=== PATIENT | female | born 1955 | race Caucasian/White ===

== ENCOUNTER 2022-04-15 12:43 | Outpatient (RCR) | payer MEDICARE, SELFPAY ==
[2022-04-15 14:26] VITALS: BP 140/60; PULSE 60; RESP 20; TEMP 36.6; O2SAT 100
[2022-04-15] MEDS: diphenhydrAMINE HCl CAP 25 MG CAPSULE PO (14:30)
[2022-04-15] MEDS: FAMOTIDINE 20 MG TABLET PO (14:30)
[2022-04-15] MEDS: ACETAMINOPHEN 325 MG TABLET 650 MG PO (14:30)
[2022-04-15] MEDS: BEBTELOVIMAB 175 MG/2 ML VIAL IV PUSH (14:50)
[2022-04-15 15:30] VITALS: BP 147/68; PULSE 61; O2SAT 99
[2022-04-15] MEDS: HEPARIN SODIUM LOCK FLUSH 500 UNITS/5 ML SYRINGE IV PUSH (15:33)
== END 2022-04-15 16:00 ==
LOC: AMCINF 12:43
PROVIDERS: PCP Family Medicine; Referring Provider Physician Assistant; Visit Provider Internal Medicine Hematology & Oncology
DX: U07.1 COVID-19 (principal); D84.9 Immunodeficiency, unspecified
CPT/HCPCS: A9270; M0222; Q0222

== ENCOUNTER → 2023-10-21 12:10 | Outpatient (CLI) | payer MEDICARE, SELFPAY ==
--- NOTE | ~2023-10-21 | MM_ITS ---
EXAMINATION: MM screening [facility] BI w harish HISTORY: Screening mammogram TECHNIQUE: Craniocaudal and mediolateral oblique 3-D tomosynthesis images were obtained and synthetic 2-D images were generated. CAD analysis was submitted and interpreted. COMPARISON: 11/20/2017, 02/20/2016, 12/10/2013 BREAST PARENCHYMAL COMPOSITION: The breasts are heterogeneously dense, which may obscure small masses . FINDINGS: RIGHT BREAST: An asymmetry is present in the middle third of the slightly upper breast 5.5 cm from th e nipple on the mediolateral oblique view. LEFT BREAST: No suspicious mass, calcification, or architectural distortion are identified to suggest malignancy. There has been no suspicious interval change. IMPRESSION: 1. Right breast asymmetry. 2. Additional mammographic views and possible breast ultrasound are recommended. BI-RADS Category 0: Incomplete: Needs additional imaging evaluation. Reviewed, dictated and finalized at location A. ER MAKER IMPRESSION: 1. Right breast asymmetry. 2. Additional mammographic views and possible breast ultrasound are recommended . BI-RADS Category 0: Incomplete: Needs additional imaging evaluation.
== END ==
PROVIDERS: Visit Provider Physician Assistant
DX: Z12.31 Encounter for screening mammogram for malignant neoplasm of breast (principal); R92.8 Other abnormal and inconclusive findings on diagnostic imaging of breast
CPT/HCPCS: 77063; 77067

== ENCOUNTER 2023-11-03 15:36 | Observation (INO) | payer MEDICARE, MEDICAID, SELFPAY ==
[2023-11-03] VITALS (9 sets, daily range): BP systolic 124–154; BP diastolic 53–63; PULSE 70–90; RESP 13–20; TEMP 36.1–36.7; O2SAT 96–100; BMI 29.1
--- NOTE | ~2023-11-03 | XR_ITS ---
EXAMINATION: XR chest 2V DATE: 11/03/2023 16:23 INDICATION: Chest pain TECHNIQUE: AP and lateral views of the chest are obtained. COMPARISON: 02/09/2014 FINDINGS: There is mild atelectasis of the lung bases. No pleural effusion or pneumothorax. The cardi omediastinal silhouette is normal. There is moderate thoracic spondylosis. A right internal jugular P ort-A-Cath ends with its tip in the midsuperior vena cava. IMPRESSION: 1. Mild atelectasis of the lung bases. Reviewed, dictated and finalized at location L. EN PRINTING SUPERVISOR
--- NOTE | 2023-11-03 15:44 | ECG_ITS ---
Measurements Intervals [place] Rate: 86 P: 36 CO: 137 QRS: 50 QRSD: 88 T: 55 QT: 384 QTc: 461 Interpretive Statements SINUS RHYTHM POSSIBLE LEFT ATRIAL ENLARGEMENT [-0.1mV P-WAVE IN V1/V2] NO PREVIOUS ECG AVAILABLE FOR COMPARISON Electronically Signed On 11-04-2023 15:01:01 NURSE ANESTHETIST by Jesus Reyna M.D.
[2023-11-03 16:16] LABS: Basophils Absolute Auto 0.1 K/mm3 (0.0-0.1); Basophils Percent Auto 0.9 % (0.2-1.2); Eosinophils Absolute Auto 0.1 K/mm3 (0-0.3); Eosinophils Percent Auto 0.4 % (0-4.4); Hematocrit 32.6 % (37.0-47.0); Hemoglobin 10.2 g/dL (12.0-15.0); Immature Granulocyte Absolute 0.06 K/mm3 (0.00-0.031); Immature Granulocyte Percent A 0.5 % (0-0.5); Lymphocytes Absolute Auto 1.07 K/mm3 (0.9-3.2); Lymphocytes Percent Auto 8.4 % (18.3-44.2); Mean Corpuscular HGB Conc 31.3 g/dl (32-36); Mean Corpuscular Hemoglobin 29.4 pg (26-34); Mean Corpuscular Volume 93.9 fl (80-100); Mean Platelet Volume 9.8 fl (7.4-10.4); Monocytes Absolute Auto 0.4 K/mm3 (0.1-0.6); Monocytes Percent Auto 2.9 % (2.6-8.5); Neutrophils Absolute Auto 11.1 K/mm3 (1.3-6.7); Neutrophils Percent Auto 86.9 % (45.5-73.1); Nucleated Red Blood Cells Absolute Auto 0.2 K/mm3 (0.0-0.012); Nucleated Red Blood Cells Perc 1.3 % (0.0-0.2); Platelet Count Result 402 k/mm3 (150-375); Red Blood Count 3.47 M/mm3 (4.2-5.4); Red Cell Distribution Width 19.4 % (11.5-14.5); White Blood Count 12.8 K/mm3 (4.5-10.0)
[2023-11-03 16:24] LABS: Alanine Aminotransferase 26 U/L (6-35); Albumin Level 3.6 g/dL (3.5-5.1); Alkaline Phosphatase 113 U/L (38-126); Anion Gap 5 mmol/L (8-16); Aspartate Amino Transferase 33 U/L (14-36); Bilirubin,Total 0.3 mg/dL (0.2-1.3); Blood Urea Nitrogen 24 mg/dL (7-17); Calcium 8.6 mg/dL (8.4-10.2); Carbon Dioxide 21 mmol/L (22-30); Chloride 110 mmol/L (98-107); Estimated Glomerular Filt Rate > 60; Glucose 225 mg/dL (65-110); Lipase 35 U/L (23-300); Potassium 4.5 mmol/L (3.4-5.0); Sodium 136 mmol/L (137-145)
[2023-11-03 16:26] LABS: INR 1.6; Partial Thromboplastin Time 30.8 SECONDS (22.3-36.8); Prothrombin Time 20.1 Seconds (11.1-14.7)
[2023-11-03 16:38] LABS: Troponin I 0.051 ng/mL (0.000-0.034)
--- NOTE | 2023-11-03 17:48 | ED.ARRPALP ---
HPI - Arrhythmia/Palpitations General Chief Complaint: Chest Pain Stated Complaint: SVT Time Seen by Provider: 11/03/23 16:38 History of Present Illness HPI narrative: Patient is a 68-year-old female with a history of pancreatic cancer, diabetes presenting with palpitations. Patient states that she developed palpitations and chest pain earlier today. EMS was called and she was in SVT. She received 6 mg of adenosine and her heart rate normalized. States that she has felt fine since that time. No further chest pain, shortness of breath, lightheadedness. No recent leg swelling, fevers, cough, nausea vomiting, diarrhea. No complaints currently. Related Data Home Medications Medication Instructions Recorded Confirmed Cinnamon 1 cap PO DAILY 06/15/20 11/03/23 cyclobenzaprine 10 mg tablet 10 mg PO Q8H PRN muscle spasms 06/15/20 11/03/23 cetirizine 10 mg tablet (Zyrtec) 10 mg PO DAILY allergies 02/06/22 11/03/23 lzyplvmp-say-dvstb ac 400 1 tablet PO DAILY 02/06/22 11/03/23 mcg-calcium carb 500 mg-vit K1 20 mcg tablet (Women's 50 Plus Multivitamin) opium tincture 10 mg/mL (morphine) 0.5 ml PO Q6H 02/06/22 11/03/23 oral acetaminophen 650 mg tablet 650 mg PO Q6H PRN Pain (Scale 11/03/23 11/04/23 Score 1-3) aluminum-magnesium hydroxide 180 20 ml PO Q4H PRN mucositis 11/03/23 11/04/23 mg-160 mg/5 mL oral suspension aspirin 81 mg tablet 81 mg PO DAILY 11/03/23 11/03/23 benzonatate 100 mg capsule 100 mg PO TID PRN Cough 11/03/23 11/03/23 betamethasone, augmented 0.05 % 1 applic topical BID PRN Itching 11/03/23 11/03/23 topical ointment diphenoxylate-atropine 2.5 1 tablet PO QID PRN Diarrhea 11/03/23 11/03/23 mg-0.025 mg tablet glucagon 1 mg/0.2 mL subcutaneous 1 mg subcut PRN PRN severe low 11/03/23 11/03/23 auto-injector (Gvoke HypoPen blood glucose 2-Pack) lidocaine-prilocaine 2.5 %-2.5 % 1 applic topical ONCE PRN port 11/03/23 11/04/23 topical cream access ondansetron 8 mg disintegrating 8 mg PO Q8H PRN nausea or vomiting 11/03/23 11/03/23 tablet prochlorperazine maleate 10 mg 10 mg PO Q6H PRN nausea or vomiting 11/03/23 11/04/23 tablet (Compazine) sitagliptin phosphate 25 mg tablet 25 mg PO DAILY 11/03/23 11/03/23 (Januvia) triamcinolone acetonide 0.1 % 1 applic topical BID PRN eczema, 11/03/23 11/04/23 topical cream itching vitamin B complex (B 1 tablet PO DAILY 11/03/23 11/04/23 Complex-Vitamin B12 tablet) ergocalciferol (vitamin D2) 1,250 1,250 mcg PO WEEKLY 11/04/23 11/03/23 mcg (50,000 unit) capsule escitalopram oxalate 20 mg tablet 20 mg PO HS 11/04/23 11/03/23 insulin aspart U-100 100 unit/mL 7 unit subcut AC 11/04/23 11/03/23 (3 mL) subcutaneous pen insulin glargine 100 unit/mL (3 37 unit subcut HS 11/04/23 11/03/23 mL) subcutaneous pen (Lantus Solostar U-100 Insulin) levothyroxine 125 mcg tablet 125 mcg PO DAILY 11/04/23 11/03/23 oxybutynin chloride 5 mg tablet 5 mg PO BID 11/04/23 11/03/23 Allergies Allergy/AdvReac Type Severity Reaction Status Date / Time metformin Allergy Unknown unknown Verified 11/03/23 15:43 terbinafine Allergy Unknown unknown Verified 11/03/23 15:43 Molds and Smuts Allergy Intermediate unknown Uncoded 11/03/23 15:43 Review of Systems Review of Systems: All systems reviewed & are unremarkable except as noted in HPI and below PMFSH Past Medical History Medical History (Updated 11/08/23 @ 13:18 by Evie Pate MD) Adenocarcinoma of pancreas Depression Diabetes HLD (hyperlipidemia) Hypertension Hypothyroidism PVD (peripheral vascular disease) Thyroid disease Surgical History Surgical History H/O sinus surgery H/O: hysterectomy Family History Family History Other Cerebrovascular accident Depression Diabetes mellitus Family history of coronary artery disease Family history of lung cancer Family histor
[2023-11-03] MEDS: SODIUM CHLORIDE 0.9% IV 1,000 ML 999 ML IV CONT (17:50)
--- NOTE | 2023-11-03 18:28 | ECG_ITS ---
Measurements Intervals [place] Rate: 78 P: 49 MN: 147 QRS: 56 QRSD: 82 T: 56 QT: 401 QTc: 459 Interpretive Statements SINUS RHYTHM WITH OCCASIONAL SUPRAVENTRICULAR PREMATURE COMPLEXES COMPARED TO ECG 11/03/2023 15:48:15 NO SIGNIFICANT CHANGES Electronically Signed On 11-04-2023 15:04:45 GEOSPATIAL INFORMATION SCIENTIST by Jesus Reyna M.D.
[2023-11-03 19:06] LABS: Troponin I 0.147 ng/mL (0.000-0.034)
[2023-11-03] MEDS: ASPIRIN 81 MG CHEWABLE TABLET 324 MG PO (21:08)
[2023-11-03 22:02] LABS: Glucose Point of Care 184 mg/dl (65-105)
[2023-11-03 22:50] LABS: Troponin I 0.198 ng/mL (0.000-0.034)
--- NOTE | 2023-11-03 23:03 | PM.IMHP ---
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 Patient called EMS after developing sudden onset of palpitations and chest pain that started around noon. Patient was standing at her kitchen window looking out.Denies any prodromal symptoms. No strenuous activities prior to episode, spent morning picking up. Trialed rest which did not resolve her symptoms. Patient then checked her vitals which showed her HR 198 and BP 235/190. Lowest observed HR by patient was 155. Patient spoke with her Oncology office around 2 pm, they advised she call EMS. EMS arrived around 2:30 pm. Chest pain and palpitations lasted for 2.5 hours. Chest pain was described as pressure/squeeze and non-radiating. Upon EMS arrival, quick mixer operator showed patient to be in SVT. She was administered 6 mg of adenosine with subsequent normalization of heart rate. Chest pain and palpitations resolved with medication administration. Denies any further episodes of chest pain, chest tightness, SOB, lightheadedness, diaphoresis, nausea, or vomiting. No recent illnesses. No known sick contacts. Is receiving treatment for pancreatic cancer, last chemo treatment on 10/26 - goes to [facility]. Denies any triggers - increase in caffeine, reduced sleep, or increased stress. Cardiac RF include - HTN, HLD, and currently receiving chemo. No previous cardiac procedures, does have stent near or in femoral arteries - unclear exact location. No previous history of dysrhythmia. No previous history of anemia, was told she may develop mild anemia secondary to chemo. Initial VS at presentation: 98 F, HR 90, RR 20, 135/61, 100% on RA. ED workup showed mild leukocytosis with WBC of 12.8, mild anemia with a hemoglobin of 10.2 (decrease compared to previous in 2018, 12.7), creatinine 0.9, glucose 225, no other significant electrolyte derangements, and troponin 0.147. CXR showed mild atelectasis of the lung bases. EKG showed sinus rhythm with possible left atrial enlargement. Second EKG showed sinus rhythm with occasional supraventricular premature complexes. Review of Systems Review of Systems: All systems reviewed & are unremarkable except as noted in HPI and below PMFSH Past Medical History Medical History (Updated 11/03/23 @ 23:14 by Concha Waters APRN) Adenocarcinoma of pancreas Depression Diabetes HLD (hyperlipidemia) Hypertension Hypothyroidism PVD (peripheral vascular disease) Thyroid disease Surgical History Surgical History H/O sinus surgery H/O: hysterectomy Family History Family History Other Cerebrovascular accident Depression Diabetes mellitus Family history of coronary artery disease Family history of lung cancer Family history of malignant neoplasm of bone Malignant neoplasm of prostate Social History Social History Smoking packs per day: 1 Smoking cigarettes per day: 20.0 Years smoked: 20 Smoking pack-years: 20.00 Smoking status: Former smoker Tobacco type: cigarettes Second hand tobacco smoke exposure: No Smoking end date: 09/28/12 Alcohol intake: never Substance use: never Substance use type: does not use Do You Feel Safe in your Home?: Yes Lack of Transportation: No Lack of Food: Never True Current Housing: I Have Housing Concerned About Future Housing: No Difficulty Paying Gas/Electric Bills: No Difficulty Paying for Meds: No Currently Unemployed: No Education: Trade/Vocational Certificate Difficulty w/ Childcare or Family Care: No Spiritual care concerns: No Agr
[2023-11-03 23:39] LABS: Glucose Point of Care 161 mg/dl (65-105)
[2023-11-04] VITALS (19 sets, daily range): BP systolic 127–144; BP diastolic 38–55; PULSE 67–78; RESP 16–18; TEMP 35.9–36.5; O2SAT 98–100
--- NOTE | 2023-11-04 00:06 | ADMGEN ---
This patient, Shanti Rogers, was admitted to IMU Room 209-01 at 2310. Patient/family oriented to hospital policies and general routines including ID bracelet, bed and alarms, visiting hours, pain management, procedures, bathroom and other care routines, personal items, smoking policy, room service/diet, and visiting hours. Information on how to activate the Rapid Response Team has been discussed. Patient/Family are encouraged to report perceived risks to care and to ask questions if they do not understand what they are told or what they should do.
[2023-11-04] MEDS: LEVOTHYROXINE SODIUM 125 MCG TABLET PO (06:32)
[2023-11-04 07:18] LABS: Glucose Point of Care 197 mg/dl (65-105)
[2023-11-04] MEDS: ALPRAZolam (*CRX) 0.25 MG TABLET PO ×3 (10:04→17:24)
[2023-11-04] MEDS: INSULIN ASPART (*BKC) 100 UNITS/ML 7 UNITS SUB-Q ×3 (10:04→17:28)
[2023-11-04] MEDS: THERAPEUTIC MULTIVITAMINS/MINERALS TAB (*BKC) 1 TABLET PO (10:05)
[2023-11-04] MEDS: VITAMIN B COMPLEX CAPSULE 1 CAP PO (10:05)
[2023-11-04] MEDS: ATORVASTATIN 20 MG TABLET PO (10:05)
[2023-11-04] MEDS: amLODIPine BESYLATE 5 MG TABLET PO (10:05)
[2023-11-04] MEDS: oxyBUTYnin CHLORIDE 5 MG TABLET PO ×2 (10:05→17:24)
[2023-11-04] MEDS: ASPIRIN 81 MG ENTERIC TABLET PO (10:06)
[2023-11-04] MEDS: METOPROLOL TARTRATE 6.25 MG TABLET PO ×2 (10:09→20:54)
[2023-11-04] MEDS: INSULIN ASPART (*BKC) 100 UNITS/ML SUB-Q ×2 (11:51→20:57)
[2023-11-04 12:21] LABS: Glucose Point of Care 220 mg/dl (65-105)
[2023-11-04 12:37] LABS: Basophils Absolute Auto 0.1 K/mm3 (0.0-0.1); Basophils Percent Auto 0.7 % (0.2-1.2); Eosinophils Absolute Auto 0.2 K/mm3 (0-0.3); Eosinophils Percent Auto 1.4 % (0-4.4); Hematocrit 30.1 % (37.0-47.0); Hemoglobin 9.8 g/dL (12.0-15.0); Immature Granulocyte Absolute 0.08 K/mm3 (0.00-0.031); Immature Granulocyte Percent A 0.6 % (0-0.5); Lymphocytes Absolute Auto 2.03 K/mm3 (0.9-3.2); Lymphocytes Percent Auto 15.8 % (18.3-44.2); Mean Corpuscular HGB Conc 32.6 g/dl (32-36); Mean Corpuscular Hemoglobin 30.4 pg (26-34); Mean Corpuscular Volume 93.5 fl (80-100); Mean Platelet Volume 10.2 fl (7.4-10.4); Monocytes Absolute Auto 0.6 K/mm3 (0.1-0.6); Monocytes Percent Auto 4.5 % (2.6-8.5); Neutrophils Absolute Auto 9.9 K/mm3 (1.3-6.7); Nucleated Red Blood Cells Absolute Auto 0.2 K/mm3 (0.0-0.012); Nucleated Red Blood Cells Perc 1.6 % (0.0-0.2); Platelet Count Result 368 k/mm3 (150-375); Red Blood Count 3.22 M/mm3 (4.2-5.4); Red Cell Distribution Width 19.4 % (11.5-14.5); White Blood Count 12.8 K/mm3 (4.5-10.0)
[2023-11-04 12:43] LABS: Alanine Aminotransferase 22 U/L (6-35); Albumin Level 3.6 g/dL (3.5-5.1); Alkaline Phosphatase 108 U/L (38-126); Anion Gap 6 mmol/L (8-16); Aspartate Amino Transferase 25 U/L (14-36); Bilirubin,Total 0.4 mg/dL (0.2-1.3); Blood Urea Nitrogen 19 mg/dL (7-17); Calcium 8.7 mg/dL (8.4-10.2); Carbon Dioxide 21 mmol/L (22-30); Chloride 112 mmol/L (98-107); Estimated CRCL calculation 49 ml/min; Estimated Glomerular Filt Rate 55; Glucose 221 mg/dL (65-110); Magnesium 2.2 mg/dL (1.6-2.3); Potassium 4.3 mmol/L (3.4-5.0); Sodium 139 mmol/L (137-145)
[2023-11-04 12:53] LABS: Iron 87 ug/dL (37-170)
[2023-11-04 13:00] LABS: NT Pro B Type Natriuretic Pept 878 pg/mL (19.9-100)
[2023-11-04 13:07] LABS: Percent Iron Saturation 25 % (20-50)
[2023-11-04 13:13] LABS: Troponin I 0.077 ng/mL (0.000-0.034)
[2023-11-04] MEDS: CENTRAL LINE FLUSH 10 ML IV PUSH ×2 (13:27→20:57)
[2023-11-04 13:51] LABS: Folic Acid > 20.0 ng/mL (2.76->20)
--- NOTE | 2023-11-04 14:38 | PM.IMPN ---
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 H&P as follows Patient called EMS after developing sudden onset of palpitations and chest pain that started around noon. Patient was standing at her kitchen window looking out.Denies any prodromal symptoms.? No strenuous activities prior to episode, spent morning picking up. Trialed rest which did not resolve her symptoms. Patient then checked her vitals which showed her HR 198 and BP 235/190. Lowest observed HR by patient was 155. Patient spoke with her Oncology office around 2 pm, they advised she call EMS. EMS arrived around 2:30 pm. Chest pain and palpitations lasted for 2.5 hours. Chest pain was described as pressure/squeeze and non-radiating.? Upon EMS arrival, manager monitoring showed patient to be in SVT.? She was administered 6 mg of adenosine with subsequent normalization of heart rate.? Chest pain and palpitations resolved with medication administration.? Denies any further episodes of chest pain, chest tightness, SOB, lightheadedness, diaphoresis, nausea, or vomiting.? No recent illnesses.? No known sick contacts.? Is receiving treatment for pancreatic cancer, last chemo treatment on 10/26 - goes to [facility]. Denies any triggers - increase in caffeine, reduced sleep, or increased stress. Cardiac RF include - HTN, HLD, and currently receiving chemo. No previous cardiac procedures, does have stent near or in femoral arteries - unclear exact location. No previous history of dysrhythmia. No previous history of anemia, was told she may develop mild anemia secondary to chemo. Initial VS at presentation:? 98 F, HR 90, RR 20, 135/61, 100% on RA. ED workup showed mild leukocytosis with WBC of 12.8, mild anemia with a hemoglobin of 10.2 (decrease compared to previous in 2018, 12.7), creatinine 0.9, glucose 225, no other significant electrolyte derangements, and troponin 0.147.? CXR showed mild atelectasis of the lung bases.? EKG showed sinus rhythm with possible left atrial enlargement.? Second EKG showed sinus rhythm with occasional supraventricular premature complexes. On 11/04 the patient is in normal sinus rhythm. Start metoprolol 6.25 mg p.o. b.i.d. and monitor blood pressure and heart rate. FEN: Saline lock IV GI prophylaxis: Not indicated DVT prophylaxis: Continue home Xarelto 20 mg p.o. q.day Lines: Code Status: Full code Dispo: Stable Subjective Date/time seen: 11/04/23 14:38 Interval history: No acute overnight events. Denies any complaints Review of Systems Review of Systems: All systems reviewed & are unremarkable except as noted in HPI and below (Subjective) Exam Const: General: comfortable and no acute distress Eyes: Pupils: Equal, round and reactive pupils present Resp: Effort & Inspection: normal respiratory effort Auscultation: clear to auscultation bilaterally Cardio: Rate: regular rate Rhythm: regular rhythm GI: GI Palp: Yes Soft to palpation and No Tenderness to palpation present (GI) Extrem: General: no edema Objective Data Vital Signs Vital Signs: Vital Signs - 24 hr 11/03/23 15:37 11/03/23 15:43 11/03/23 17:04 Temperature 98.0 F Pulse Rate 90 90 83 Respiratory Rate 20 17 Blood Pressure 135/61 134/62 Pulse Oximetry 100 96 Oxygen Delivery Room Air 11/03/23 17:52 11/03/23 18:28 11/03/23 19:27 Temperature Pulse Rate 76 79 80 Respiratory Rate 13 17 13 Blood Pressure 124/61 143/56 H 135/57 L Pulse Oximetry 98 100 98 Oxygen Delivery 11/03/23 21:09 11/03/23 22:19 11/03/23 23:54 Temperature Pulse Rate 80 70
[2023-11-04 14:44] LABS: Hemoglobin A1C 7.8 % (<5.7)
[2023-11-04] MEDS: RIVAROXABAN 20 MG TABLET PO (17:24)
[2023-11-04 18:02] LABS: Glucose Point of Care 135 mg/dl (65-105)
[2023-11-04 20:30] LABS: Glucose Point of Care 215 mg/dl (65-105)
[2023-11-04] MEDS: ESCITALOPRAM OXALATE 10 MG TABLET 20 MG PO (20:54)
[2023-11-04] MEDS: INSULIN GLARGINE (*BKC) 100 UNITS/ML 37 UNITS SUB-Q (20:54)
[2023-11-04] MEDS: DIPHENOXYLATE/ATROPINE (*CRX) 2.5 MG TABLET 1 TABLET PO (22:59)
[2023-11-05] VITALS: PULSE 75
[2023-11-05 04:00] VITALS: PULSE 66
[2023-11-05 04:22] VITALS: BP 148/48; PULSE 67; RESP 18; TEMP 36.5; O2SAT 95
[2023-11-05] MEDS: LEVOTHYROXINE SODIUM 125 MCG TABLET PO (05:42)
[2023-11-05] MEDS: CENTRAL LINE FLUSH 10 ML IV PUSH (05:42)
[2023-11-05 05:57] LABS: Basophils Absolute Auto 0.1 K/mm3 (0.0-0.1); Basophils Percent Auto 0.9 % (0.2-1.2); Eosinophils Absolute Auto 0.3 K/mm3 (0-0.3); Eosinophils Percent Auto 4.3 % (0-4.4); Hematocrit 28.7 % (37.0-47.0); Hemoglobin 9.1 g/dL (12.0-15.0); Immature Granulocyte Absolute 0.05 K/mm3 (0.00-0.031); Immature Granulocyte Percent A 0.6 % (0-0.5); Lymphocytes Absolute Auto 2.02 K/mm3 (0.9-3.2); Lymphocytes Percent Auto 25.6 % (18.3-44.2); Mean Corpuscular HGB Conc 31.7 g/dl (32-36); Mean Corpuscular Hemoglobin 29.2 pg (26-34); Mean Platelet Volume 10.3 fl (7.4-10.4); Monocytes Absolute Auto 0.6 K/mm3 (0.1-0.6); Monocytes Percent Auto 7.6 % (2.6-8.5); Neutrophils Absolute Auto 4.8 K/mm3 (1.3-6.7); Nucleated Red Blood Cells Absolute Auto 0.2 K/mm3 (0.0-0.012); Nucleated Red Blood Cells Perc 2.4 % (0.0-0.2); Platelet Count Result 344 k/mm3 (150-375); Red Blood Count 3.12 M/mm3 (4.2-5.4); Red Cell Distribution Width 19.8 % (11.5-14.5); White Blood Count 7.9 K/mm3 (4.5-10.0)
[2023-11-05 06:08] LABS: Anion Gap 7 mmol/L (8-16); Blood Urea Nitrogen 20 mg/dL (7-17); Calcium 8.6 mg/dL (8.4-10.2); Carbon Dioxide 19 mmol/L (22-30); Chloride 111 mmol/L (98-107); Estimated CRCL calculation 49 ml/min; Estimated Glomerular Filt Rate 55; Glucose 313 mg/dL (65-110); Magnesium 2.1 mg/dL (1.6-2.3); Potassium 4.4 mmol/L (3.4-5.0); Sodium 137 mmol/L (137-145)
[2023-11-05] MEDS: INSULIN ASPART (*BKC) 100 UNITS/ML SUB-Q (07:50)
[2023-11-05] MEDS: INSULIN ASPART (*BKC) 100 UNITS/ML 7 UNITS SUB-Q (07:51)
--- NOTE | 2023-11-05 07:51 | PM.DS ---
DS: Admitting Diagnosis Discharge Date November 05, 2023 Admitting Diagnosis Palpitations DS: Discharge Diagnosis Discharge Diagnosis (1) SVT (supraventricular tachycardia): Code(s): I47.10 - Supraventricular tachycardia, unspecified Status: Acute DS: Summary Hospital Course Hospital Course: Ms. 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 The patient called EMS after developing onset of palpitations and chest pain. She was found have a blood pressure of 235/190 and a heart rate 198. She was administered 6 mg of adenosine and as a result her heart rate normalized to normal sinus rhythm. Her chest pain resolved and her troponin peaked at 0.198. Her EKG was without acute ischemia. She was monitored on telemetry and remained in normal sinus rhythm. Metoprolol 6.25 mg p.o. b.i.d. was initiated and she tolerated that well. She is stable for discharge on 11/05/2023 to home. She is to follow with her PCP and establish new care with our [facility]. The patient is amenable to this plan and all questions were answered to satisfaction. She has a chronic anemia as well and this may be due to her cancer/chemotherapy. Her folate level was greater than 20 and vitamin B12 level was 224 so for that borderline low result she understands she should follow with PCP and Heme-Onc. The patient was full code during her admission Time Spent with Patient Time attestation: Total time spent providing and/or coordinating discharge services: Exam Const: General: cooperative and no acute distress Resp: Effort & Inspection: normal respiratory effort Auscultation: clear to auscultation bilaterally Cardio: Rate: regular rate Rhythm: regular rhythm Heart sounds: S1 normal heart sound present and S2 normal heart sound present GI: GI Palp: No abdominal tenderness Auscultation: normal bowel sounds DS: Data Data Completed and Pending Labs on day of discharge: Labs from last 24 hours 11/05/23 11/04/23 11/04/23 04:56 20:13 15:23 WBC 7.9 RBC 3.12 L Hgb 9.1 L Hct 28.7 L MCV 92.0 MCH 29.2 MCHC 31.7 L RDW 19.8 H Plt Count 344 MPV 10.3 Immature Gran % (Auto) 0.6 H Neut % (Auto) 61.0 Lymph % (Auto) 25.6 [place] % (Auto) 7.6 Eos % (Auto) 4.3 Baso % (Auto) 0.9 Lymph # (Auto) 2.02 [place] # (Auto) 0.6 Eos # (Auto) 0.3 Baso # (Auto) 0.1 Abs Immat Gran (auto) 0.05 H Absolute Neuts (auto) 4.8 Absolute Nucleated RBC 0.2 H Nucleated RBC % 2.4 H Sodium 137 Potassium 4.4 Chloride 111 H Carbon Dioxide 19 L Anion Gap 7 L BUN 20 H Creatinine 1.00 Estim Creat Clear Calc 49 Estimated GFR 55 L Glucose 313 H POC Capillary Glucose 215 H 135 H Hemoglobin A1c Calcium 8.6 Magnesium 2.1 Iron TIBC % Saturation Ferritin Total Bilirubin AST ALT Alkaline Phosphatase Troponin I NT-Pro-B Natriuret Pep Total Protein Albumin Vitamin B12 Folate TSH (Reflex) 11/04/23 11/04/23 11/04/23 12:15 11:42 06:11 WBC 12.8 H RBC 3.22 L Hgb 9.8 L Hct 30.1 L MCV 93.5 MCH 30.4 MCHC 32.6 RDW 19.4 H Plt Count 368 MPV 10.2 Immature Gran % (Auto) 0.6 H Neut % (Auto) 77.0 H Lymph % (Auto) 15.8 L [place] % (Auto) 4.5 Eos % (Auto) 1.4 Baso % (Auto) 0.7 Lymph # (Auto) 2.03 [place] # (Auto) 0.6 Eos # (Auto) 0.2 Baso # (Auto) 0.1 Abs Immat Gran (auto) 0.08 H Absolute Neuts (auto) 9.9 H Absolute Nucleated RBC 0.2 H Nucleated RBC % 1.6 H Sodium 139 Potassium 4.3 Chloride 112 H Carbon Dioxide 21 L Anion Gap 6 L BUN 19 H Creatinine 1.00 Estim Creat Clear Calc 49
[2023-11-05 08:00] VITALS: BP 151/88; PULSE 64; PULSE 66; RESP 12; TEMP 36.4; O2SAT 100
[2023-11-05 08:14] LABS: Glucose Point of Care 211 mg/dl (65-105)
[2023-11-05 08:31] VITALS: PULSE 78
[2023-11-05] MEDS: ALPRAZolam (*CRX) 0.25 MG TABLET PO (08:31)
[2023-11-05] MEDS: METOPROLOL TARTRATE 6.25 MG TABLET PO (08:31)
[2023-11-05] MEDS: oxyBUTYnin CHLORIDE 5 MG TABLET PO (08:32)
[2023-11-05] MEDS: ATORVASTATIN 20 MG TABLET PO (08:32)
[2023-11-05] MEDS: VITAMIN B COMPLEX CAPSULE 1 CAP PO (08:32)
[2023-11-05] MEDS: THERAPEUTIC MULTIVITAMINS/MINERALS TAB (*BKC) 1 TABLET PO (08:33)
[2023-11-05] MEDS: amLODIPine BESYLATE 5 MG TABLET PO (08:33)
[2023-11-05] MEDS: ASPIRIN 81 MG ENTERIC TABLET PO (08:33)
[2023-11-05 10:00] VITALS: PULSE 64
--- NOTE | 2023-11-05 10:55 | PC.NURSE ---
On 11/05/23, the student, [ Sam Quiles], provided care and completed [facility] documentation on this patient. I have reviewed the student's documentation and agree with the findings.
== END 2023-11-05 10:45 | disposition home or self-care (01) ==
LOC: ANHED 16:53 → ANHIMU 23:01
PROVIDERS: Student in an Organized Health Care Education/Training Program; Admitting Provider Internal Medicine; Emergency Provider Emergency Medicine; PCP Family Medicine; Visit Provider General Practice
DX: I47.10 Supraventricular tachycardia, unspecified (principal); I10 Essential (primary) hypertension; C25.9 Malignant neoplasm of pancreas, unspecified; R79.89 Other specified abnormal findings of blood chemistry; E11.40 Type 2 diabetes mellitus with diabetic neuropathy, unspecified; J98.11 Atelectasis; E11.51 Type 2 diabetes mellitus with diabetic peripheral angiopathy without gangrene; Z98.62 Peripheral vascular angioplasty status; F32.A Depression, unspecified; E78.5 Hyperlipidemia, unspecified; E03.9 Hypothyroidism, unspecified; Z87.891 Personal history of nicotine dependence; Z79.1 Long term (current) use of non-steroidal anti-inflammatories (NSAID); Z79.82 Long term (current) use of aspirin; Z79.85 Long-term (current) use of injectable non-insulin antidiabetic drugs; Z79.84 Long term (current) use of oral hypoglycemic drugs; Z79.52 Long term (current) use of systemic steroids; Z79.4 Long term (current) use of insulin; Z79.60 Long term (current) use of unspecified immunomodulators and immunosuppressants; Z79.899 Other long term (current) drug therapy
CPT/HCPCS: 36415; 71046; 80048; 80053; 82607; 82728; 82746; 82948; 83036; 83540; 83550; 83690; 83735; 83880; 84443; 84484; 85025; 85610; 85730; 93005; 96360; 96361; 99285; A9270; G0378; J1815; J7030